=== PATIENT | male | born 1995 | race Caucasian/White ===

== ENCOUNTER 2017-10-09 15:34 | Emergency (ER) | payer OTHER ==
[~2017-10-09] VITALS: Ht 167.6 cm; Wt 54.0 kg
[~2017-10-09 15:34] MED LIST: LEVO125T71 PO
[2017-10-09 15:42] VITALS: Ht 167.6 cm; Wt 54.0 kg
[2017-10-09] MEDS ORDERED: LEVO100T87 PO (17:49)
--- NOTE | 2017-10-09 17:54 | ERD ---
ER Documentation Chief Complaint Chief Complaint med refill HPI This 22-year-old male presents because he has just run out of his Synthroid 100 mg daily. He did not get a refill because he did not want to go see his supervisor phosphoric acid and missed the appointment. He suffers from hypothyroidism not no condition. He has both primary care doctor and supervisor phosphoric acid. Is currently not having any symptoms of depression, tiredness, cold sensitivity. He has not had any thyroid surgery before. States that he feels otherwise well so far. ROS All systems reviewed and are negative except as per history of present illness. Medications Home Meds Active Scripts Levothyroxine Sodium* (Levothyroxine Sodium*) 100 Mcg Tablet, 100 MCG PO BEFORE BREAKFAST, #30 TAB 1 Refill Prov:JANETH TORREZ DO 10/09/17 Reported Medications Levothyroxine Sodium* (Levoxyl*) 125 Mcg Tablet, 137 MCG PO daily 02/28/13 Allergies Allergies: Coded Allergies: No Known Allergy (Unverified , 11/18/14) PMhx/Soc History of Surgery: No Anesthesia Reaction: No Hx Neurological Disorder: No Hx Respiratory Disorders: No Hx Cardiac Disorders: No Hx Psychiatric Problems: No Hx Miscellaneous Medical Probl: Yes (HYPOTHROID) Hx Alcohol Use: Yes (ON OCCASSION) Hx Substance Use: Yes (MARIJUANA ON OCCASSION) Hx Tobacco Use: No Smoking Status: Never smoker Physical Exam Vitals Vital Signs Date Time Temp Pulse Resp B/P Pulse Ox O2 Delivery O2 Flow Rate FiO2 10/09/17 15:42 98.1 59 18 129/82 100 Physical Exam Const: [] No distress Head: Atraumatic Eyes: Normal Conjunctiva ENT: Normal External Ears, Nose and Mouth. Cardio: Regular rate and rhythm, no murmurs Skin: No petechiae or rashes Back: No midline or flank tenderness Ext: No cyanosis, or edema Neur: Awake and alert 3, no focal deficits Psych: Normal Mood and Affect Procedures/MDM Young male who is hypothyroid. After physical exam I do not believe the patient is at risk for emergent myxedema coma or severe hypothyroidism. I will refill his medication but he will need to see his primary care doctor or supervisor phosphoric acid as soon as possible. I have urged him to call tomorrow morning for an rescheduled appointment. Departure Diagnosis: Primary Impression: Hypothyroid Additional Impression: Encounter for medication refill Condition: Stable Patient Instructions: Taking Medicine Safely, Hypothyroidism Additional Instructions: Call your primary care doctor TOMORROW for an appointment during the next 2-3 days.See the doctor sooner or return here if your condition worsens before your appointment time. JANETH TORREZ DO Oct 09, 2017 17:54
== END 2017-10-09 17:59 | disposition home or self-care (01) ==
LOC: FTE 15:34
DX: E03.9 Hypothyroidism, unspecified (principal)
CPT/HCPCS: 99281

== ENCOUNTER 2017-12-05 11:30 | Emergency (ER) | END 2017-12-05 16:50 | disposition home or self-care (01) ==

== ENCOUNTER 2018-04-24 22:58 | Emergency (ER) | END 2018-04-25 05:00 | disposition home or self-care (01) ==

== ENCOUNTER 2018-05-01 21:01 | Emergency (ER) | END 2018-05-02 03:00 | disposition home or self-care (01) ==

== ENCOUNTER → 2019-06-08 | Emergency (ER) | payer OTHER ==
[~2019-06-08] VITALS: Ht 154.9 cm; Wt 60.6 kg
[~2019-06-08] MED LIST changes: +AZIT500T3 PO; +BISM262O23 PO; +CEPH-443 PO; +DIPH25CA6 PO; +DIPHENHYDRAMINE 25 MG CAP PO ONE; +ELIM TOP; +IBUP-1542 PO; +LEVO100T8 PO; +TYL500 PO
[2019-06-08 06:06] VITALS: BP 119/71; PULSE 64; RESP 18; Ht 154.9 cm; Wt 60.6 kg
--- NOTE | 2019-06-08 06:36 | ERD ---
ER Documentation Chief Complaint Chief Complaint C/O GENERALIZED BODY RASH AND ITCHINESS SINCE LAST NIGHT HPI 23-year-old male presents with a diffuse itchy rash all over his body since last night. He states he sleeps with another roommate in an apartment that has bedbugs. He believes he may have bedbugs to. He denies any welts or hives. Denies any history of allergies. No new exposures. No fevers or chills. No other complaints. ROS All systems reviewed and are negative except as per history of present illness. Medications Home Meds Active Scripts Permethrin* (Elimite*) 5% Cr, 1 APPLIC TOP ONCE, #1 TUB Prov:MILOIGRJESSICAANPAULINO-C 06/08/19 Diphenhydramine Hcl* (Diphenhydramine Hcl*) 25 Mg Capsule, 25 MG PO Q6 PRN for ITCHING, #30 CAP Prov:PAULINO COLEMAN-C 06/08/19 Cephalexin* (Keflex*) 500 Mg Capsule, 500 MG PO QID for 5 Days, CAP Prov:KALEY MURILLO NP 04/25/18 Ibuprofen* (Motrin*) 600 Mg Tab, 600 MG PO Q6H PRN for PAIN AND OR ELEVATED TEMP, #30 TAB Prov:KALEY MURILLO NP 18 Acetaminophen* (Tylenol*) 500 Mg Tab, 500 MG PO Q4H PRN for MILD PAIN LEVEL 1-3, #20 TAB Prov:ADAMS IGNACIO MD 12/05/17 Azithromycin* (Zithromax*) 500 Mg Tablet, 500 MG PO DAILY for 3 Days, TAB Prov:ADAMS IGNACIO MD 12/05/17 Bismuth Subsalicylate* (Pepto-Bismol*) 262 Mg/15 Ml Oral.susp, 15 ML PO Q3H PRN for DIARRHEA for 4 Days, ML Prov:ADAMS IGNACIO MD 12/05/17 Levothyroxine Sodium* (Levothyroxine Sodium*) 100 Mcg Tablet, 100 MCG PO BEFORE BREAKFAST, #30 TAB Prov:ADAMS IGNACIO MD 12/05/17 Levothyroxine Sodium* (Levothyroxine Sodium*) 100 Mcg Tablet, 100 MCG PO BEFORE BREAKFAST, #30 TAB 1 Refill Prov:JANETH TORREZ DO 10/09/17 Reported Medications Levothyroxine Sodium* (Levoxyl*) 125 Mcg Tablet, 137 MCG PO daily 02/28/13 Allergies Allergies: Coded Allergies: No Known Allergy (Unverified , 06/08/19) PMhx/Soc Medical and Surgical Hx: pt denies Surgical Hx History of Surgery: No Anesthesia Reaction: No Hx Neurological Disorder: No Hx Respiratory Disorders: No Hx Cardiac Disorders: No Hx Psychiatric Problems: No Hx Miscellaneous Medical Probl: Yes (HYPOTHROID) Hx Alcohol Use: Yes Hx Substance Use: Yes (MARIJUANA ON OCCASSION) Hx Tobacco Use: No Smoking Status: Never smoker Physical Exam Vitals Vital Signs Date Temp Pulse Resp B/P (MAP) Pulse Ox O2 O2 Flow FiO2 Time Delivery Rate 06/08/19 97.9 64 18 119/71 99 06:06 (87) Physical Exam Const: + Patient appears uncomfortable, itching in the room Head: Atraumatic Eyes: Normal Conjunctiva ENT: Normal External Ears, Nose and Mouth. Neck: Full range of motion. No meningismus. Skin: + Diffuse small erythematous papules diffusely on the arms, trunk and extremities occluding the texture and extensor of the upper extremities. Neur: Awake and alert Psych: Normal Mood and Affect Results 24 hrs Current Medications Medications Dose Sig/Patricia Start Time Status Last (Trade) Ordered Route PRN Stop Time Admin Dose Reason Admin 25 mg ONCE ONCE 06/08/19 Diphenhydrami PO 06:30 ne HCl 06/08/19 06:31 (Benadryl) Procedures/MDM ED COURSE: The patient was given Benadryl p.o. The medication was well tolerated and the patient had market improvement in symptoms. The patient remained stable throughout ED course. MEDICAL DECISION MAKIN-year-old male presents with diffuse itching after sleeping and is an apartment that is known to have bedbugs. Signs and symptoms are consistent with scabies versus bedbugs. Patient was given p.o. Benadryl here with improvement of his itchiness. He was prescribed topical permethrin cream, advised to repeat in 1 week. Education was provided. Clinical picture is not consistent with anaphylaxis, cellulitis, abscess or deep space tissue infection. He is afebrile, nontoxic-appearing and stable for discharge. Strict return precautions were discussed. He was told to follow-up with his primary care provider, resources to [facility] Alberto and Kady Cruz were also provided. PRESCRIPTIONS: Benadryl, permethrin SPECIALIST FOLLOW UP RECOMMENDED: None Departure Diagnosis: Primary Impression: Bed bug bite Encounter type: initial encounter Qualified Codes: W57.XXXA - Bitten or stung by nonvenomous insect and other nonvenomous arthropods, initial encounter Condition: Stable Patient Instructions: Scabies Referrals: [facility], [facility] YOU HAVE RECEIVED A MEDICAL SCREENING EXAM AND THE RESULTS INDICATE THAT YOU DO NOT HAVE A CONDITION THAT REQUIRES URGENT TREATMENT IN THE EMERGENCY DEPARTMENT. FURTHER EVALUATION AND TREATMENT OF YOUR CONDITION CAN WAIT UNTIL YOU ARE SEEN IN YOUR DOCTORS OFFICE WITHIN THE NEXT 1-2 DAYS. IT IS YOUR RESPONSIBILITY TO MAKE AN APPOINTMENT FOR FOLOW-UP CARE. IF YOU HAVE A PRIMARY DOCTOR --you should call your primary doctor and schedule an appointment IF YOU DO NOT HAVE A PRIMARY DOCTOR YOU CAN CALL OUR PHYSICIAN REFERRAL HOTLINE AT IF YOU CAN NOT AFFORD TO SEE A PHYSICIAN YOU CAN CHOSE FROM THE FOLLOWING [facility] [address] [facility]. [facility] [address] [facility]. [facility] [address] [facility] [facility] [address] [facility]. [facility] [address] [facility]. [facility]. [address] [facility] YOU HAVE RECEIVED A MEDICAL SCREENING EXAM AND THE RESULTS INDICATE THAT YOU DO NOT HAVE A CONDITION THAT REQUIRES URGENT TREATMENT IN THE EMERGENCY DEPARTMENT. FURTHER EVALUATION AND TREATMENT OF YOUR CONDITION CAN WAIT UNTIL YOU ARE SEEN IN YOUR DOCTORS OFFICE WITHIN THE NEXT 1-2 DAYS. IT IS YOUR RESPONSIBILITY TO MAKE AN APPOINTMENT FOR FOLOW-UP CARE. IF YOU HAVE A PRIMARY DOCTOR --you should call your primary doctor and schedule and appointment IF YOU DO NOT HAVE A PRIMARY DOCTOR YOU CAN CALL OUR PHYSICIAN REFERRAL HOTLINE AT . IF YOU CAN NOT AFFORD TO SEE A PHYSICIAN YOU CAN CHOSE FROM THE FOLLOWING [facility] INSTITUTIONS: [facility] [address] [place] [address] [facility] [address] [place] [address] [facility] [address] [place] [address] Additional Instructions: apply the cream for 8 hours then shower, repeat in 1 week. Use the benadryl for any itchiness. Wash your bedding in hot water. Return here for any new or worsening symptoms. PAULINO COLEMAN PA-C Jun 08, 2019 06:36
== END | disposition home or self-care (01) ==
LOC: FTE 06:04
DX: S40.861A Insect bite (nonvenomous) of right upper arm, initial encounter (principal); S40.862A Insect bite (nonvenomous) of left upper arm, initial encounter; S30.861A Insect bite (nonvenomous) of abdominal wall, initial encounter; E03.9 Hypothyroidism, unspecified; W57.XXXA Bitten or stung by nonvenomous insect and other nonvenomous arthropods, initial encounter; Y92.039 Unspecified place in apartment as the place of occurrence of the external cause
CPT/HCPCS: 99282